=== PATIENT | male | born 1980 | race Caucasian/White ===

== ENCOUNTER 2017-07-03 14:59 | Emergency (ER) | payer OTHER ==
[2017-07-03 15:33] VITALS: BP 115/77
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
== END 2017-07-03 16:40 | disposition home or self-care (01) ==
LOC: UCCORT 14:59
DX: R10.31 Right lower quadrant pain (principal); Z87.820 Personal history of traumatic brain injury; F17.210 Nicotine dependence, cigarettes, uncomplicated
CPT/HCPCS: 99212; G0463

== ENCOUNTER 2018-04-12 13:29 | Emergency (ER) | payer OTHER ==
[2018-04-12 13:59] VITALS: BP 99/63
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
== END 2018-04-12 14:35 | disposition home or self-care (01) ==
LOC: UCCORT 13:29
DX: J32.9 Chronic sinusitis, unspecified (principal); R20.0 Anesthesia of skin; F17.210 Nicotine dependence, cigarettes, uncomplicated; Z98.890 Other specified postprocedural states; Z87.820 Personal history of traumatic brain injury; Z87.898 Personal history of other specified conditions
CPT/HCPCS: 99212; G0463